=== PATIENT | male | born 1960 | race Asian ===

== ENCOUNTER 2017-07-12 16:17 | Emergency (ER) | payer BC ==
[~2017-07-12] VITALS: Ht 188 cm; Wt 113.5 kg
[~2017-07-12 16:17] MED LIST: ATOR10TA PO; METF10002 PO
[2017-07-12 16:19] VITALS: BP 163/97
[2017-07-12] MEDS ORDERED: LIDOCAINE-MPF 1%, 5ML ONE (16:54)
[2017-07-12] MEDS ORDERED: LIDOCAINE 1%, 10ML INFIL ONE (17:00)
== END 2017-07-12 17:36 | disposition home or self-care (01) ==
LOC: ED 17:00
DX: L02.31 Cutaneous abscess of buttock (principal); E78.5 Hyperlipidemia, unspecified; E11.9 Type 2 diabetes mellitus without complications; I10 Essential (primary) hypertension
CPT/HCPCS: 10060; 99283

== ENCOUNTER 2018-04-22 09:28 | Emergency (ER) | payer BC ==
[~2018-04-22] VITALS: Ht 188 cm; Wt 110.0 kg
[2018-04-22 09:34] VITALS: BP 193/91
[2018-04-22 10:12] LABS: BASOPHILS # (AUTO) 0.03 x10^3/uL (0-0.1); BASOPHILS % (AUTO) 1 % (0-1); EOSINOPHILS % (AUTO) 2 % (1-7); LYMPHOCYTES # (AUTO) 1.53 x10^3/uL (1-3.4); LYMPHOCYTES % (AUTO) 28 % (22-44); MD NO; MEAN CORPUSCULAR HEMOGLOBIN 31.5 pg (27.5-34.5); MEAN CORPUSCULAR VOLUME 92.6 fL (81-97); MEAN PLATELET VOLUME 8.4 fL (7.4-10.4); MONOCYTES % (AUTO) 9 % (2-9); NEUTROPHILS # (AUTO) 3.25 x10^3/uL (1.8-6.8); NEUTROPHILS % (AUTO) 60 % (42-75); PLATELET COUNT 148 x10^3/uL (130-400); RED BLOOD COUNT 5.35 x10^6/uL (4.38-5.82); RED CELL DISTRIBUTION WIDTH 12.5 % (9.4-14.8)
[2018-04-22 10:23] LABS: ALBUMIN 3.8 g/dL (3.4-5.0); ANION GAP 7 mmol/L (5-15); CALCIUM 9.1 mg/dL (8.5-10.1); CHLORIDE 104 mmol/L (98-107); CREATININE 0.91 mg/dL (0.7-1.3)
== END 2018-04-22 10:55 | disposition home or self-care (01) ==
LOC: ED 10:39
DX: L03.032 Cellulitis of left toe (principal); E11.65 Type 2 diabetes mellitus with hyperglycemia; I10 Essential (primary) hypertension; E78.5 Hyperlipidemia, unspecified
CPT/HCPCS: 36415; 80048; 82040; 85025; 99284

== ENCOUNTER 2018-04-29 03:15 | Emergency (ER) | payer BC ==
[~2018-04-29] VITALS: Ht 188 cm; Wt 110.3 kg
[~2018-04-29 03:15] MED LIST changes: +LISI-170 PO
--- NOTE | 2018-04-29 03:39 | NUR ---
PT ARRIVES TO THE ED ASKING TO BE ADMITTED FOR HIS NEUROPATHY.
--- NOTE | 2018-04-29 04:53 | NUR ---
ASSIST RN: FINGER STICK 240. PATIENT DISCHARGED WITH INSTRUCTION. VERBALIZED UNDERSTANDING.
[2018-04-29 04:55] VITALS: BP 132/81
== END 2018-04-29 04:57 | disposition home or self-care (01) ==
LOC: ED 03:56
DX: L03.032 Cellulitis of left toe (principal); E11.40 Type 2 diabetes mellitus with diabetic neuropathy, unspecified; I10 Essential (primary) hypertension; E78.5 Hyperlipidemia, unspecified
CPT/HCPCS: 82962; 99282

== ENCOUNTER 2020-05-19 23:40 | Emergency (ER) | payer BC ==
[~2020-05-19] VITALS: Ht 188 cm; Wt 112.3 kg
[2020-05-19 23:46] VITALS: BP 138/75
== END 2020-05-20 01:22 | disposition home or self-care (01) ==
LOC: ED 05-20 00:35
DX: L03.011 Cellulitis of right finger (principal); L03.012 Cellulitis of left finger; E11.40 Type 2 diabetes mellitus with diabetic neuropathy, unspecified; I10 Essential (primary) hypertension; E78.5 Hyperlipidemia, unspecified
CPT/HCPCS: 99283